=== PATIENT | male | born 1950 | race Hispanic/Latino ===

== ENCOUNTER → 2017-05-14 | Emergency (ER) | payer MEDICARE, OTHER ==
[~2017-05-14] VITALS: Ht 172.7 cm; Wt 81.7 kg
[~2017-05-14] MED LIST: ACETAMINOPHEN325 M1 PO; ARTIFICIAL TEA3.5 G1 OP; ASPIRIN EC325 MG PO; ASPIRIN EC81 MG PO; ATENOLOL100 MG PO; CARVEDILOL25 MG PO; CHOLEST OFF450 MG PO; CIPRO500 MG PO; COREG12.5 MG PO; FENOFIBRATE54 MG PO; FISH OIL 1,0001 EAC2 PO; FOLIC ACID0.4 MG PO; GARLIC500 M1 PO; GLIPIZIDE ER10 MG PO; GLIPIZIDE XL2.5 MG PO; GLUCOSAMINE 1,1 EACH PO; KEFLEX500 MG PO; LISINOPRIL-HCT1 EAC2; MELOXICAM15 MG PO; METFORMIN HCL500 MG; METFORMIN HCL850 MG PO; MULTIVITAMINS1 EAC8 PO; NIFEDICAL XL60 MG PO; NORCO 5-325 TA1 EACH PO; ONDANSETRON ODT4 MG PO; POTASSIUM CHLO10 MEQ PO; POTASSIUM CHLO20 ME1 PO; PROCARDIA XL30 MG PO; PROSTATE THERA1 EACH PO; SIMVASTATIN20 MG; SIMVASTATIN40 MG PO; TRICOR48 MG PO; VITAMIN B-12100 MCG PO; VITAMIN B-6100 MG PO; VITAMIN D400 UNI1 PO; ZESTORETIC 20-1 EACH PO; ZOLPIDEM TARTRA10 MG PO
--- NOTE | 2017-05-14 16:22 | EKG ---
[facility] [address] [facility] [place] [address] Signed Normal sinus rhythm Nonspecific T wave abnormality Abnormal ECG No previous ECGs available Confirmed by ZAIN REYNA MD ([id number]) on 05/14/2017 4:21:54 PM Electronically Signed By: ZAIN REYNA MD 05/14/17 1622 PATIENT NAME: RUSS ARREOLA Electrocardiogram DATE OF : 48 PHYSICIAN: ZAIN REYNA MD REPORT #: [id number] REPORT IS CONFIDENTIAL AND NOT TO BE RELEASED WITHOUT AUTHORIZATION
== END ==
LOC: ED 13:36
DX: R07.9 Chest pain, unspecified (principal); E11.65 Type 2 diabetes mellitus with hyperglycemia; I10 Essential (primary) hypertension; Z87.442 Personal history of urinary calculi; Z79.899 Other long term (current) drug therapy; Z79.84 Long term (current) use of oral hypoglycemic drugs
CPT/HCPCS: 36415; 71010; 80053; 82010; 82803; 84484; 85025; 93005; 93010; 96374; 96376; 99284; J7030

== ENCOUNTER 2017-06-11 16:44 | Emergency (ER) | payer MEDICARE, OTHER ==
[~2017-06-11] VITALS: Ht 172.7 cm; Wt 86.2 kg
[~2017-06-11 16:44] MED LIST changes: -CIPRO500 MG PO; -GLIPIZIDE ER10 MG PO; -ZOLPIDEM TARTRA10 MG PO
[2017-06-11] MEDS ORDERED: ZOLPIDEM TARTRA10 MG PO (17:38)
[2017-06-11] MEDS ORDERED: GLIPIZIDE ER10 MG PO (17:38)
[2017-06-11] MEDS ORDERED: CIPRO500 MG PO (21:16)
--- NOTE | 2017-06-12 18:29 | EKG ---
[facility] [address] [facility] [place] [address] Signed Normal sinus rhythm Minimal voltage criteria for LVH, may be normal variant Nonspecific T wave abnormality Abnormal ECG When compared with ECG of 11-JUN-2017 17:53, (Unconfirmed) No significant change was found Confirmed by ZAIN REYNA MD ([id number]) on 06/12/2017 6:29:19 PM Electronically Signed By: ZAIN REYNA MD 06/12/17 1829 PATIENT NAME: RUSS ARREOLA Electrocardiogram DATE OF : 48 PHYSICIAN: ZAIN REYNA MD REPORT #: [id number] REPORT IS CONFIDENTIAL AND NOT TO BE RELEASED WITHOUT AUTHORIZATION
--- NOTE | 2017-06-12 18:29 | EKG ---
[facility] [address] [facility] [place] [address] Signed Normal sinus rhythm Left ventricular hypertrophy with repolarization abnormality Abnormal ECG When compared with ECG of 14-MAY-2017 13:41, ST now depressed in Inferior leads Nonspecific T wave abnormality now evident in Inferior leads Confirmed by ZAIN REYNA MD ([id number]) on 06/12/2017 6:29:01 PM Electronically Signed By: ZAIN REYNA MD 06/12/17 1829 PATIENT NAME: RUSS ARREOLA Electrocardiogram DATE OF : [birth year] PHYSICIAN: ZAIN REYNA MD REPORT #: [id number] REPORT IS CONFIDENTIAL AND NOT TO BE RELEASED WITHOUT AUTHORIZATION
== END 2017-06-11 21:17 | disposition home or self-care (01) ==
LOC: ED 16:44
DX: R41.82 Altered mental status, unspecified (principal); N41.9 Inflammatory disease of prostate, unspecified; I10 Essential (primary) hypertension; E11.9 Type 2 diabetes mellitus without complications; Z87.442 Personal history of urinary calculi; Z86.73 Personal history of transient ischemic attack (TIA), and cerebral infarction without residual deficits; Z87.891 Personal history of nicotine dependence; Z79.899 Other long term (current) drug therapy; Z79.84 Long term (current) use of oral hypoglycemic drugs
CPT/HCPCS: 71010; 80053; 81001; 84484; 85025; 87088; 93005; 93010; 99284; G0480; J7030

== ENCOUNTER 2017-08-14 11:22 | Emergency (ER) | payer MEDICARE, OTHER ==
[~2017-08-14] VITALS: Ht 172.7 cm; Wt 86.2 kg
[~2017-08-14 11:22] MED LIST changes: +CIPRO500 MG PO; +GLIPIZIDE ER10 MG PO; +ZOLPIDEM TARTRA10 MG PO
[2017-08-14] MEDS ORDERED: FLOMAX0.4 MG PO (14:08)
[2017-09-25] MEDS ORDERED: LASIX40 MG PO (08:58)
[2017-09-25] MEDS ORDERED: ISOSORBIDE MONO60 MG PO (08:59)
[2017-09-25] MEDS ORDERED: K-TAB ER20 MEQ PO (09:01)
[2017-09-25] MEDS ORDERED: ASPIR 8181 MG (09:01)
[2017-09-25] MEDS ORDERED: KETOROLAC TROME10 MG PO (10:04)
[2017-09-25] MEDS ORDERED: CATAPRES0.1 MG PO (10:04)
[2017-09-25] MEDS ORDERED: ZESTRIL2.5 MG PO (10:04)
[2017-11-11] MEDS ORDERED: VITAMIN D35000 UNIT (10:07)
[2017-11-11] MEDS ORDERED: VITAMIN D2000 UNI1 (10:14)
[2017-11-11] MEDS ORDERED: FENOFIBRATE54 MG (10:15)
[2017-11-11] MEDS ORDERED: FISH OIL 1,0001 EAC2 (10:15)
[2017-11-11] MEDS ORDERED: HYDROCHLOROTH12.5 MG (10:16)
[2017-11-11] MEDS ORDERED: NITROFURANTOIN100 MG (10:17)
[2017-11-11] MEDS ORDERED: NITROSTAT0.4 MG (10:18)
[2017-11-11] MEDS ORDERED: SIMVASTATIN20 MG (10:19)
== END 2017-08-14 15:01 | disposition home or self-care (01) ==
LOC: ED 11:22
DX: R35.0 Frequency of micturition (principal); R10.30 Lower abdominal pain, unspecified; I10 Essential (primary) hypertension; E11.9 Type 2 diabetes mellitus without complications; Z87.442 Personal history of urinary calculi; Z86.73 Personal history of transient ischemic attack (TIA), and cerebral infarction without residual deficits; Z79.899 Other long term (current) drug therapy; Z79.84 Long term (current) use of oral hypoglycemic drugs
CPT/HCPCS: 74176; 80053; 81001; 85025; 96374; 99284; J1885

== ENCOUNTER 2018-06-24 13:09 | Observation (INO) | payer MEDICARE, OTHER ==
[~2018-06-24] VITALS: Ht 172.7 cm; Wt 83.7 kg
[~2018-06-24 13:09] MED LIST changes: +ASPIR 8181 MG PO; +CATAPRES0.1 MG PO; +FLOMAX0.4 MG PO; +HYDROCHLOROTH12.5 MG PO; +ISOSORBIDE MONO60 MG PO; +K-TAB ER20 MEQ PO; +KETOROLAC TROME10 MG PO; +LASIX40 MG PO; +NITROFURANTOIN100 MG; +NITROSTAT0.4 MG SL; +VITAMIN D32000 UNI1 PO; +VITAMIN D35000 UNIT; +ZESTRIL2.5 MG PO; +ZOFRAN ODT4 MG PO
[2018-06-24] MEDS ORDERED: ATORVASTATIN CA40 MG PO (13:34)
[2018-06-24] MEDS ORDERED: AMLODIPINE BESY10 MG PO (13:34)
[2018-06-24] MEDS ORDERED: OLMESARTAN MEDO40 MG PO (13:37)
--- NOTE | 2018-06-24 18:46 | NUR ---
68 YEAR OLD MALE PATIENT ADMITTED TO CCU UNDER DR. REYNA FROM ED VIA STRETCHER WITH DX HTN EMERGENCY. PATIENT STATES HE VOMITED 3 TIMES YESTERDAY. HX OF CKD. CREAT-4.33. UPON ADMIT TO CCU PATIENT IS ALERT, COOPERATIVE, ORIENTED.
--- NOTE | 2018-06-24 19:15 | NUR ---
NAUSEATED, PAIN IN LOWER ABD. REPORT TO NEXT SHIFT.
--- NOTE | 2018-06-24 19:35 | NUR ---
RECEIVED REPORT FROM JASON TODD. PATIENT IS SITTING IN BED WATCHING TV AND TALKING WITH FAMILY. BREATHING IS EVEN AND UNLABORED, DENIES NEEDS AT THIS TIME. IVF INFUSING PER ORDER.
--- NOTE | 2018-06-24 20:04 | NUR ---
PATIENT IS RESTFUL IN BED, BREATHING IS UNLABORED. DUE TO CONTINUED ELEVATED BP WITH SYSTOLIC >190, SCHEDULED CARVEDILOL AND AMLODIPINE GIVEN. ASSESSMENT DONE, PATIENT IS ALERT AND ORIENTED X4, BREATHING IS EVEN AND UNLABORED. PERIPHERAL PULSES WELL FELT IN ALL EXTREMITIES, HEART RATE BETWEEN 70 AND 80. ABD IS DISTENDED, PATIENT STATES THIS IS NORMAL FOR HIM, REBOUND TENDERNESS NOTED, BOWEL TONES ACTIVE, VOIDING STOOL AND URINE WITHOUT DIFFICULTY. IVF INFUSING PER ORDER, PATIENT DENIES NEEDS AT THIS TIME. CALL LIGHT WITHIN REACH, FAMILY AT BEDSIDE.
--- NOTE | 2018-06-24 20:32 | NUR ---
PATIENT REPORTS 3/10 PAIN IN ABD AND PAIN IN LEFT SHOULDER, WHICH HE STATES IS CHRONIC FOR HIM, DENIES CHEST PAIN. ALSO REPORTS NAUSEA. 2 MG IV PRN MORPHINE GIVEN AND 4 MG IV PRN ZOFRAN GIVEN. PATIETN DENIES FURTHER NEEDS.
--- NOTE | 2018-06-24 21:00 | NUR ---
NOTIFIED DR. REYNA THAT PATIENT HAS CONTINUED ELEVATED BP WITH SYSTOLIC PRESSURE >190 DESPITE PO AMLODIPINE AND CARVEDILOL GIVEN WELL PRN IV MORPHINE. RECEIVED ORDER FOR NICARDIPINE GTT TO BE INITIATED. ALSO NOTIFIED DR. REYNA THAT PATIENT'S BLOOD GLUCOSE WAS 56, ASYMPTOMATIC, AFTER GLASS OF ORANGE JUICE, BLOOD GLUCOSE 53. RECEIVED ORDER FOR 25 ML OF DEXTROSE 50% GIVEN IV AND IVF CHANGED TO D5NS AT 125 ML/HR.
--- NOTE | 2018-06-24 21:20 | NUR ---
PATIENT GIVEN 25 ML DEXTROSE 50% PER ORDER. PATIENT REMAINS ASYMPTOMATIC. ASSISTED TO BATHROOM SBA, GAIT STEADY. PATIENT ABLE TO VOID URINE, PASSING FLATUS. NOW IN BED AGAIN, BREATHING UNLABORED. PATIENT DENIES PAIN AT THIS TIME, STATES NAUSEA IS MINIMAL. DENIES FURTHER NEEDS. CALL LIGHT WITHIN REACH, FAMILY AT BEDSIDE.
--- NOTE | 2018-06-24 22:44 | NUR ---
PATIENT HAD EMESIS X1, 12.5 MG IV PRN PHENERGAN GIVEN. PATIENT DENIES PAIN AT THIS TIME. NO FURTHER NEEDS. CALL LIGHT WITHIN REACH, FAMILY AT BEDSIDE.
--- NOTE | 2018-06-24 22:46 | NUR ---
NICARDIPINE GTT TITRATED TO 7.5 MG/HR DUE TO BP OF 185/92 (111). PRN PHENERGAN GIVEN FOR CONTINUED NAUSEA DESPITE ZOFRAN ADMINISTRATION. PATIENT DENIES PAIN. DENIES FURTHER NEEDS AT THIS TIME. CALL LIGHT WITHIN REACH.
--- NOTE | 2018-06-24 22:53 | NUR ---
BLOOD GLUCOSE RECHECKED, NOW 160. PATIENT DENIES NEEDS AT THIS TIME. CALL LIGHT WITHIN REACH.
--- NOTE | 2018-06-24 23:52 | NUR ---
NICARDIPINE GTT TITRATED TO 5 MG/HR DUE TO BP OF 142/64 (81). PATIENT IS RESTFUL WITH EYES CLOSED, BREATHING IS EVEN AND UNLABORED. CALL LIGHT WITHIN REACH.
--- NOTE | 2018-06-25 01:25 | NUR ---
PATIENT IS RESTFUL WITH EYES CLOSED, BREATHING IS EVEN AND UNLABORED. O2 SATURATION IS 97% ON 2L O2 VIA NC, TITRATED TO 1L. FLACC SCORE OF 0. NICARDIPINE GTT TURNED OFF WITH SYSTOLIC PRESSURE RANGING BETWEEN 120 AND 160 WITH A MAP >90.
--- NOTE | 2018-06-25 02:51 | NUR ---
PATIENT IS RESTFUL WITH EYES CLOSED, BREATHING IS UNLABORED, O2 SATURATION IS 95% ON 2L O2 VIA NC, CONTINUES TO DESAT WHILE ASLEEP, NONSUSTAINED. DENIES FEELING NAUSEOUS, DENIES PAIN. NO NEEDS AT THIS TIME. CALL LIGHT WITHIN REACH.
[2018-06-25] MEDS ORDERED: BENICAR40 MG PO (03:01)
[2018-06-25] MEDS ORDERED: ALDACTONE25 MG PO (03:03)
[2018-06-25] MEDS ORDERED: ULTRAM50 MG PO (03:05)
--- NOTE | 2018-06-25 03:45 | NUR ---
PATIENT REMAINS RESTFUL WITH EYES CLOSED, BREATHING IS UNLABORED. FLACC SCORE OF 0. CALL LIGHT WITHIN REACH.
--- NOTE | 2018-06-25 05:39 | NUR ---
PATIENT IS RESTING IN BED WITH EYES CLOSED. DENIES NEEDS AT THIS TIME, DENIES PAIN, NO NAUSEA. ASSESSMENT DONE, NO ACUTE CHANGES FROM BEGINNING OF SHIFT ASSESSMENT. CALL LIGHT WITHIN REACH.
--- NOTE | 2018-06-25 06:43 | NUR ---
PATIENT'S BLOOD PRESSURE HAS BEEN WELL CONTROLLED THIS SHIFT AFTER PO SCHEDULED MEDICATIONS AND ABOUT TWO HOURS ON NICARDIPINE GTT. PATIENT HAS BEEN OFF GTT FOR SEVERAL HOURS AND SYSTOLIC BP REMAINS >180 AND MAPS BETWEEN 90 AND 110. PATIENT HAS DENIED PAIN THROUGHOUT SHIFT, REQUIRED X1 DOSE OF PRN MORPHINE. ABD REMAINS DISTENDED (PATIENT STATES THIS IS NORMAL FOR HIM) BOWEL TONES AE ACTIVE, PATIENT PASSING GAS. HAS REQUIRRED BETWEEN 1 AND 2 L OF O2 DUE TO DESATURATION WHILE ASLEEP, LUNGS SOUNDS REMAIN CLEAR THROUGHOUT. VOIDING QS WITH URINAL AND AMBULATION WITH SBA TO BATHROOM. BLOOD GLUCOSE REMAINS >100 AFTER DEXTROSE 50% ADMINISTRATION AND ADDITION OF DEXTROSE 5% TO IVF. PATIENT HAS BEEN RESTING THROUGHOUT NIGHT.
--- NOTE | 2018-06-25 09:52 | NUR ---
STAFF IN WITH PATIENT. WILL RETURN LATER.
--- NOTE | 2018-06-25 11:20 | NUR ---
ATTEMPTED ASSESS PATIENT FOR CASE MANAGEMENT, PT IS SLEEPING AND IS ON THE PHONE, WILL CHECK WITH PT LATER.
--- NOTE | 2018-06-25 12:15 | NUR ---
IV SITES INTACT, NO REDNESS OR SWELLING NOTED, FLUIDS AND FLUSHES INFUSE EASILY. PT C/O 11/06 RT LOW ABD PAIN, 2 MG IV MORPHINE GIVEN. PT DENIES NAUSEA, AND IS AGREABLE TO ANOTHER CLEAR LIQUID TRAY FOR LUNCH. PT 02 SATS MAINTAINED EVEN DURING SLEEP ON ROOM AIR. BP REMAINS WNL. PT DENEIS SOB.
--- NOTE | 2018-06-25 12:52 | NUR ---
PT. VERY TIRED AT VISIT AND FALLING ASLEEP. REQUESTS I TALK WITH SHARRI. PT HAS NOT BEEN FEELING WELL SINCE BEFORE ELISE DUE TO EXHAUSTION. 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 LIVES WITH , ADULT CHILDREN, AND GRANDCHILDREN. PT WILL FU WITH DR SAN WHEN DISCHARGED.
--- NOTE | 2018-06-25 13:08 | NUR ---
PATIENT TOLERATED 100% OF CLEAR LIQUID DIET LUNCH TRAY. DENIES ANY C/O. CALL LIGHT WITHIN REACH.
--- NOTE | 2018-06-25 13:17 | NUR ---
I ENTERED PT'S RM, HE WAS ASLEEP, HIS WAS LAYING ON COUCH. BP FINALLY DOWN-HAD VERY CONCERNED. FAMILY REQUESTED FR MORENO TO VISIT, I CALLED, LEFT A MESSAGE AND INFORMED FAMILY. PT WOKE BRIEFLY, WAVED AND SEEMED TO RECOGNIZE ME. THEN FELL BACK ASLEEP. EXTENDED A BLESSING, WILL FOLLOW NEEDED
--- NOTE | 2018-06-25 13:45 | NUR ---
PT ABLE TO FINISH ALL OF HIS CLEAR LIQUID TRAY FOR LUNCH. PT DENIES NAUSEA, PAIN, AND SOB AT THIS TIME. PT STATES "I SHOULD GO HOME NOW".
--- NOTE | 2018-06-25 15:24 | NUR ---
PT REPORTS "I'M HURGRY". HE DENIES PAIN, NAUSEA, AND SOB. A FULL SOFT TRAY OF FOOD WAS ORDERED FOR HIM WITH DIETARY.
--- NOTE | 2018-06-25 15:51 | EKG ---
[facility] [address] [facility] [place] [address] Signed Normal sinus rhythm Minimal voltage criteria for LVH, may be normal variant Borderline ECG When compared with ECG of 15-MAY-2018 13:33, Nonspecific T wave abnormality no longer evident in Lateral leads Confirmed by VIRGINIA NATARAJAN MD ([id number]) on 06/25/2018 3:51:34 PM Electronically Signed By: VIRGINIA NATARAJAN MD 06/25/18 1551 PATIENT NAME: RUSS ARREOLA Electrocardiogram DATE OF : 48 PHYSICIAN: VIRGINIA NATARAJAN MD REPORT #: [id number] REPORT IS CONFIDENTIAL AND NOT TO BE RELEASED WITHOUT AUTHORIZATION
[2018-06-25] MEDS ORDERED: ISOSORBIDE MON120 MG PO (17:14)
[2018-06-25] MEDS ORDERED: HYDROCHLOROTHIA25 MG PO (17:15)
[2018-06-25] MEDS ORDERED: POTASSIUM CHLO10 ME2 PO (17:18)
--- NOTE | 2018-06-25 17:23 | NUR ---
RECIEVED REPORT FROM CHIP IN CCU VIA TELEPHONE. ALL QUESTIONS ANSWERED. WAITING FOR PATIENT'S ARRIVE TO THE UNIT AT THIS TIME.
--- NOTE | 2018-06-25 17:44 | NUR ---
FULL REPORT GIVEN TO ALE TODD, PT TRANSFERED TO MED/SURG ROOM 122. ALL PERSONAL BELONGINGS WENT WITH PT.
--- NOTE | 2018-06-25 18:11 | NUR ---
PATIENT ARRIVED TO FLOOR VIA CHAIR FROM CCU ACCOMPANIED BY CONSULTING PRACTICE MANAGER AND FAMILY MEMBERS AT 1745. VITALS ASSESSED. IV'S ASSESSED, NO SIGN OF SWELLING OR REDNESS PRESENT, PATIENT DENIES PAIN. PATIENT DENIES HAVING NAUSEA, SOB, DIFFICULTY BREATHING, OR CHEST PAIN. PATIENT STATES "I FEEL MUCH BETTER" THEY ARE TALKING WITH FAMILY MEMBERS. SALINE LOCKED. POSSESSIONS AT BEDSIDE. URINAL WITHIN REACH. ASSESSMENT COMPLETE. FAMILY MEMBERS AT BEDSIDE. CALL LIGHT WITHIN REACH. NO MORE NEEDS AT THIS TIME.
--- NOTE | 2018-06-25 19:21 | NUR ---
IN ROOM FOR REPORT, PT HAS FAMILY WITH HIM IN THE ROOM AND PHARMACIST. HE DENIES NEEDS AT THIS TIME. CALL LIGHT IS CLOSE.
[2018-06-25] MEDS ORDERED: TYLENOL EXTRA500 MG PO (19:29)
--- NOTE | 2018-06-25 19:37 | NUR ---
MED REC COMPLETE
--- NOTE | 2018-06-25 19:44 | NUR ---
BROUGHT PT CHICKEN BROTH AND ICECREAM HE DENIES FURTHER NEEDS. CALL LIGHT IS CLOSE.
--- NOTE | 2018-06-25 21:29 | NUR ---
IN ROOM TO ADMINISTER MEDICATIONS AND COMPLETE ASSESSMENT. PT DENIES HEADACHE AND PAIN. HE STATES HE FEELS "NORMAL". HIS IS IN THE ROOM WITH HIM. HE DENIES NEEDS AT THIS TIME. VS & I&O'S ARE COMPLETE.
--- NOTE | 2018-06-25 23:34 | NUR ---
PT IS RESTING WITH EYES CLOSED, RESPIRATIONS ARE EVEN AND NONLABORED. CALL LIGHT IS WITHIN REACH.
--- NOTE | 2018-06-26 01:23 | NUR ---
PT IS RESTING WITH EYES CLOSED, RESPIRATIONS ARE EVEN AND NONLABORED. CALL LIGHT IS WITHIN REACH.
--- NOTE | 2018-06-26 02:30 | NUR ---
PT IS RESTING WITH EYES CLOSED, RESPIRATIONS ARE EVEN AND NONLABORED. CALL LIGHT IS WITHIN REACH.
--- NOTE | 2018-06-26 03:57 | NUR ---
PT IS RESTING WITH EYES CLOSED, RESPIRATIONS ARE EVEN AND NONLABORED. CALL LIGHT IS WITHIN REACH.
--- NOTE | 2018-06-26 05:27 | NUR ---
PT IS RESTING WITH EYES CLOSED, RESPIRATIONS ARE EVEN AND NONLABORED. CALL LIGHT IS WITHIN REACH.
--- NOTE | 2018-06-26 05:41 | NUR ---
PT SLEPT MOST OF THE NIGHT. HE DENIED PAIN, N/V. HE TOLERATED A FULL LIQUID DIET YESTERDAY AND WILL START ADA DIET FOR BREAKFAST. BS AT HS WAS 114 AND DID NOT REQUIRE S/S INSULIN. 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 BP'S HAVE BEEN CONTROLLED WITH SCHEDULED MEDICATIONS. HE DENIES PAIN.
--- NOTE | 2018-06-26 07:35 | NUR ---
LEFT MSG FOR DR NATARAJAN ABOUT PT'S MORNING BP.
[2018-06-26] MEDS ORDERED: HYDRALAZINE HCL25 MG PO (11:44)
[2018-06-26] MEDS ORDERED: PRAZOSIN HCL1 MG PO (11:45)
[2018-06-26] MEDS ORDERED: NORVASC10 MG PO (11:45)
[2018-06-26] MEDS ORDERED: DEMADEX20 MG PO (11:47)
--- NOTE | 2018-06-26 12:22 | NUR ---
PT ASLEEP, FAMILY IN RM. VISITED WITH DAUGHTER-SHE IS CONCERNED THAT PT STILL IS NOT EATING SOLID FOOD, FEELING RELIEVED THAT BP IS LOWER. ENCOURAGED FAMILY AND WILL CONTINUE TO FOLLOW
--- NOTE | 2018-06-26 12:56 | NUR ---
PATIENT REFUSED SHOWER BECAUSE HE SAID HE IS GOING HOME.
--- NOTE | 2018-06-26 13:46 | NUR ---
Spoke with pt and , Clara. They plan to dc home today. Dr Maldonado spoke with Dr Curiel and their office will call pt with follow up appt after next Wed. Pt. is awake today and feeling better. is comfortable taking patient home today. Denies questions or concerns.
== END 2018-06-26 15:10 | disposition home or self-care (01) ==
LOC: ED 13:09 → CCU 13:10 → MS 06-25 17:45
PROVIDERS: ADMIT Internal Medicine
DX: I16.0 Hypertensive urgency (principal); I12.9 Hypertensive chronic kidney disease with stage 1 through stage 4 chronic kidney disease, or unspecified chronic kidney disease; N18.4 Chronic kidney disease, stage 4 (severe); N17.9 Acute kidney failure, unspecified; E11.22 Type 2 diabetes mellitus with diabetic chronic kidney disease; E86.0 Dehydration; G47.33 Obstructive sleep apnea (adult) (pediatric); E66.9 Obesity, unspecified; N40.0 Benign prostatic hyperplasia without lower urinary tract symptoms; E78.5 Hyperlipidemia, unspecified; R10.32 Left lower quadrant pain; Z86.73 Personal history of transient ischemic attack (TIA), and cerebral infarction without residual deficits; Z79.84 Long term (current) use of oral hypoglycemic drugs; Z79.82 Long term (current) use of aspirin; Z79.899 Other long term (current) drug therapy; Z68.28 Body mass index [BMI] 28.0-28.9, adult
CPT/HCPCS: 36415; 74176; 76705; 80048; 80053; 81001; 84484; 85025; 93005; 93010; 96361; 96374; 96375; 96376; 99285-25; C9113; G0378; J0360; J1815; J2270; J2405; J2550; J7030; J7042; J7060

== ENCOUNTER 2018-08-06 16:02 | Emergency (ER) | payer MEDICARE, OTHER ==
[~2018-08-06] VITALS: Ht 172.7 cm; Wt 83.7 kg
[~2018-08-06 16:02] MED LIST changes: +ALDACTONE25 MG PO; +AMLODIPINE BESY10 MG PO; +ATORVASTATIN CA40 MG PO; +BENICAR40 MG PO; +DEMADEX20 MG PO; +HYDRALAZINE HCL25 MG PO; +HYDROCHLOROTHIA25 MG PO; +ISOSORBIDE MON120 MG PO; +NORVASC10 MG PO; +OLMESARTAN MEDO40 MG PO; +POTASSIUM CHLO10 ME2 PO; +PRAZOSIN HCL1 MG PO; +TYLENOL EXTRA500 MG PO; +ULTRAM50 MG PO
[2018-08-06] MEDS ORDERED: NORCO 5-325 TA1 EACH PO (18:17)
[2018-08-06] MEDS ORDERED: KETOROLAC TROME10 MG PO (18:17)
[2018-08-06] MEDS ORDERED: BACLOFEN10 MG PO (18:17)
--- NOTE | 2018-08-06 23:38 | EKG ---
[facility] [address] [facility] [place] [address] Signed Normal sinus rhythm Normal ECG When compared with ECG of 24-JUN-2018 13:55, T wave inversion more evident in Inferior leads Confirmed by ZAIN REYNA MD ([id number]) on 08/06/2018 11:38:22 PM Electronically Signed By: ZAIN REYNA MD 08/06/18 2338 PATIENT NAME: RUSS ARREOLA PLATT Electrocardiogram DATE OF : 48 PHYSICIAN: ZAIN REYNA MD REPORT #: [id number] REPORT IS CONFIDENTIAL AND NOT TO BE RELEASED WITHOUT AUTHORIZATION
== END 2018-08-06 18:56 | disposition home or self-care (01) ==
LOC: ED 16:02
DX: S22.41XA Multiple fractures of ribs, right side, initial encounter for closed fracture (principal); S00.03XA Contusion of scalp, initial encounter; E11.9 Type 2 diabetes mellitus without complications; I10 Essential (primary) hypertension; Z86.73 Personal history of transient ischemic attack (TIA), and cerebral infarction without residual deficits; Z87.442 Personal history of urinary calculi; Z79.899 Other long term (current) drug therapy; Z79.82 Long term (current) use of aspirin; Z79.84 Long term (current) use of oral hypoglycemic drugs; W01.0XXA Fall on same level from slipping, tripping and stumbling without subsequent striking against object, initial encounter
CPT/HCPCS: 36415; 70450; 71101; 73030; 80053; 84484; 85025; 93005; 93010; 99284-25

== ENCOUNTER 2018-08-14 14:55 | Emergency (ER) | payer MEDICARE, OTHER ==
[~2018-08-14] VITALS: Ht 172.7 cm; Wt 83.7 kg
[~2018-08-14 14:55] MED LIST changes: +BACLOFEN10 MG PO
--- OUTSIDE RECORDS SUMMARY | 2018-08-14 14:58 | XMS ---
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 EJaelyn VISIT COUNT (12 MO.) 6 [facility] TOTAL 6 NOTE: Visits indicate total known visits. ED/UCC VISIT TRACKING (12 MO.) 08/14/2018 14:56 [facility] [place] TYPE: Emergency COMPLAINT: - BLOOD IN URINE 08/06/2018 16:02 [facility] [place] TYPE: Emergency COMPLAINT: - FALL DIAGNOSES: - Essential (primary) hypertension - Personal history of urinary calculi - Type 2 diabetes mellitus without complications - long term care social worker (current) use of oral hypoglycemic drugs - Pain in right shoulder - Other chcf (current) drug therapy - Multiple fractures of ribs, right side, initial encounter for closed fracture - Contusion of scalp, initial encounter - Personal history of transient ischemic attack (TIA), and cerebral infarction without residual deficits - Fall on same level from slipping, tripping and stumbling without subsequent striking against object, initial encounter - skilled nursing (current) use of aspirin 06/24/2018 13:09 [facility] [place] TYPE: Emergency COMPLAINT: - VOMITING 05/15/2018 13:24 [facility] [place] TYPE: Emergency COMPLAINT: - HIGH BP DIAGNOSES: - skilled nursing (current) use of aspirin - Other chcf (current) drug therapy - Essential (primary) hypertension - Type 2 diabetes mellitus without complications - Other chest pain - skilled nursing (current) use of oral hypoglycemic drugs 09/25/2017 08:44 [facility] [place] TYPE: Emergency COMPLAINT: - HIGH BP DIAGNOSES: - Unspecified abdominal pain - Personal history of urinary calculi - Other chronic pain - Type 2 diabetes mellitus without complications - Personal history of transient ischemic attack (TIA), and cerebral infarction without residual deficits - Other chcf (current) drug therapy - Essential (primary) hypertension - 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 OF ORAL HYPOGLYCEMIC DRUGS - HYPERTENSIVE CRISIS, UNSPECIFIED - Hypertensive crisis, unspecified - skilled nursing (current) use of aspirin - skilled nursing (current) use of oral hypoglycemic drugs 08/14/2017 11:22 [facility] [place] TYPE: Emergency COMPLAINT: - ABD PAIN/BACK PAIN DIAGNOSES: - Essential (primary) hypertension - Type 2 diabetes mellitus without complications - Personal history of urinary calculi - Unspecified abdominal pain - long term care social worker (current) use of oral hypoglycemic drugs - Other long term care social worker (current) drug therapy - Frequency of micturition - Lower abdominal pain, unspecified - SKILLED NURSING (CURRENT) USE OF ORAL HYPOGLYCEMIC DRUGS - Personal history of transient ischemic attack (TIA), and cerebral infarction without residual deficits INPATIENT VISIT TRACKING (12 MO.) 06/24/2018 13:[address] [facility] [place] TYPE: Medical Surgical COMPLAINT: - HYPERTENSIVE EMERGENCY DIAGNOSES: - Acute kidney failure, unspecified - skilled nursing (current) use of oral hypoglycemic drugs - Left lower quadrant pain - Other chcf (current) drug therapy - Vomiting, unspecified - Type 2 diabetes mellitus with diabetic chronic kidney disease - Benign prostatic hyperplasia without lower urinary tract symptoms - Hypertensive urgency - Body mass index (BMI) 28.0-28.9, adult - Hypertensive chronic kidney disease with stage 1 through stage 4 chronic kidney disease, or unspecified chronic kidney disease - Obstructive sleep apnea (adult) (pediatric) - Personal history of transient ischemic attack (TIA), and cerebral infarction without residual deficits - Dehydration - long term care social worker (current) use of aspirin - Obesity, unspecified - Hyperlipidemia, unspecified - Chronic kidney disease, stage 4 (severe) [email or web address]
== END 2018-08-14 22:35 | disposition short-term general hospital (02) ==
LOC: ED 14:55
PROC: 4A0D7LZ Measurement of Urinary Volume, Via Natural or Artificial Opening (ICD-10-PCS; principal; 2018-08-14)
PROC: 3C1ZX8Z Irrigation of Indwelling Device using Irrigating Substance, External Approach (ICD-10-PCS; 2018-08-14)
DX: N13.9 Obstructive and reflux uropathy, unspecified (principal); E11.22 Type 2 diabetes mellitus with diabetic chronic kidney disease; I12.9 Hypertensive chronic kidney disease with stage 1 through stage 4 chronic kidney disease, or unspecified chronic kidney disease; N18.9 Chronic kidney disease, unspecified; D63.1 Anemia in chronic kidney disease; Z87.442 Personal history of urinary calculi; Z86.73 Personal history of transient ischemic attack (TIA), and cerebral infarction without residual deficits; Z87.891 Personal history of nicotine dependence; Z79.899 Other long term (current) drug therapy; Z79.82 Long term (current) use of aspirin
CPT/HCPCS: 51700; 51798; 74176; 80053; 81001; 85025; 99284-25; J1170; J2405

== ENCOUNTER 2018-10-28 11:03 | Emergency (ER) | payer MEDICARE, OTHER ==
[~2018-10-28] VITALS: Ht 172.7 cm; Wt 83.5 kg
--- OUTSIDE RECORDS SUMMARY | 2018-10-28 11:06 | XMS ---
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 Karen VISIT COUNT (12 MO.) 1 [facility] TOTAL 6 NOTE: Visits indicate total known visits. ED/UCC VISIT TRACKING (12 MO.) 10/28/2018 11:04 [facility] [place] TYPE: Emergency COMPLAINT: - RIGHT KNEE PAIN NON INJURY 08/14/2018 23:39 [facility] [place] TYPE: Emergency DIAGNOSES: - Hematuria - Hematoma - Urinary Catheter Problem 08/14/2018 14:56 [facility] [place] TYPE: Emergency COMPLAINT: - BLOOD IN URINE DIAGNOSES: - Personal history of transient ischemic attack (TIA), and cerebral infarction without residual deficits - Obstructive and reflux uropathy, unspecified - Other chcf (current) drug therapy - middle or intermediate school principal (current) use of aspirin - Chronic kidney disease, unspecified - Personal history of nicotine dependence - Personal history of urinary calculi - Hypertensive chronic kidney disease with stage 1 through stage 4 chronic kidney disease, or unspecified chronic kidney disease - Type 2 diabetes mellitus with diabetic chronic kidney disease - Hematuria, unspecified - Anemia in chronic kidney disease 08/06/2018 16:02 [facility] [place] TYPE: Emergency COMPLAINT: - FALL DIAGNOSES: - Essential (primary) hypertension - Personal history of urinary calculi - Type 2 diabetes mellitus without complications - middle or intermediate school principal (current) use of oral hypoglycemic drugs - Pain in right shoulder - Other terminal system operator (current) drug therapy - Multiple fractures of ribs, right side, initial encounter for closed fracture - Contusion of scalp, initial encounter - Personal history of transient ischemic attack (TIA), and cerebral infarction without residual deficits - Fall on same level from slipping, tripping and stumbling without subsequent striking against object, initial encounter - middle or intermediate school principal (current) use of aspirin 06/24/2018 13:09 [facility] [place] TYPE: Emergency COMPLAINT: - VOMITING 05/15/2018 13:24 [facility] [place] TYPE: Emergency COMPLAINT: - HIGH BP DIAGNOSES: - intermediate (current) use of aspirin - Other chcf (current) drug therapy - Essential (primary) hypertension - Type 2 diabetes mellitus without complications - Other chest pain - middle or intermediate school principal (current) use of oral hypoglycemic drugs INPATIENT VISIT TRACKING (12 MO.) 08/14/2018 23:39 [facility] [place] TYPE: Internal Medicine DIAGNOSES: - Gross hematuria 06/24/2018 13:10 [facility] [place] TYPE: Medical Surgical COMPLAINT: - HYPERTENSIVE EMERGENCY DIAGNOSES: - Acute kidney failure, unspecified - middle or intermediate school principal (current) use of oral hypoglycemic drugs - Left lower quadrant pain - Other terminal system operator (current) drug therapy - Vomiting, unspecified - [...] infarction without residual deficits - Dehydration - intermediate (current) use of aspirin - Obesity, unspecified - Hyperlipidemia, unspecified - Chronic kidney disease, stage 4 (severe) [email or web address]
== END 2018-10-28 12:55 | disposition home or self-care (01) ==
LOC: ED 11:03
DX: M17.11 Unilateral primary osteoarthritis, right knee (principal); M25.551 Pain in right hip; E11.9 Type 2 diabetes mellitus without complications; I10 Essential (primary) hypertension; Z86.73 Personal history of transient ischemic attack (TIA), and cerebral infarction without residual deficits; Z79.899 Other long term (current) drug therapy; Z79.82 Long term (current) use of aspirin
CPT/HCPCS: 20610; 99283-25; J3301

== ENCOUNTER 2019-05-06 13:43 | Emergency (ER) | payer MEDICARE, OTHER ==
[~2019-05-06] VITALS: Ht 172.7 cm; Wt 83.5 kg
[2019-05-06] MEDS ORDERED: BENICAR40 MG PO (14:08)
[2019-05-06] MEDS ORDERED: K-TAB ER20 MEQ PO (14:09)
[2019-05-06] MEDS ORDERED: HYDROCHLOROTHIA25 MG PO (14:09)
[2019-05-06] MEDS ORDERED: INDAPAMIDE2.5 MG PO (14:10)
[2019-05-06] MEDS ORDERED: GLIPIZIDE ER10 MG PO (14:10)
[2019-05-06] MEDS ORDERED: CALCITRIOL0.5 MCG PO (14:11)
--- NOTE | 2019-05-07 06:59 | EKG ---
[facility] [address] [facility] [place] [address] Signed Normal sinus rhythm Moderate voltage criteria for LVH, may be normal variant Nonspecific T wave abnormality Abnormal ECG When compared with ECG of 06-AUG-2018 16:58, T wave inversion no longer evident in Inferior leads Confirmed by VIRGINIA NATARAJAN MD ([id number]) on 05/07/2019 6:59:46 AM Electronically Signed By: VIRGINIA NATARAJAN MD 05/07/19 0659 PATIENT NAME: RUSS ARREOLA Electrocardiogram DATE OF : 48 PHYSICIAN: VIRGINIA NATARAJAN MD REPORT #: [id number] REPORT IS CONFIDENTIAL AND NOT TO BE RELEASED WITHOUT AUTHORIZATION
== END 2019-05-06 15:05 | disposition short-term general hospital (02) ==
LOC: ED 13:43
DX: I24.9 Acute ischemic heart disease, unspecified (principal); I10 Essential (primary) hypertension; E11.9 Type 2 diabetes mellitus without complications; Z86.73 Personal history of transient ischemic attack (TIA), and cerebral infarction without residual deficits; Z87.891 Personal history of nicotine dependence; Z79.899 Other long term (current) drug therapy; Z79.82 Long term (current) use of aspirin
CPT/HCPCS: 71045; 80053; 83735; 84484; 85025; 93005; 93010; 96374; 99285-25; J1815

== ENCOUNTER 2019-07-04 11:07 | Emergency (ER) | payer MEDICARE, OTHER ==
[~2019-07-04] VITALS: Ht 170.2 cm; Wt 83.5 kg
[~2019-07-04 11:07] MED LIST changes: +CALCITRIOL0.5 MCG PO; +INDAPAMIDE2.5 MG PO
--- NOTE | 2019-07-05 13:16 | EKG ---
[facility] [address] [facility] [place] [address] Signed Normal sinus rhythm Nonspecific T wave abnormality Abnormal ECG When compared with ECG of 06-MAY-2019 13:45, No significant change was found Confirmed by LEON FUNES DO ([id number]) on 07/05/2019 1:16:41 PM Electronically Signed By: LEON FUNES DO 07/05/19 1316 PATIENT NAME: MAXWELLRUSS Electrocardiogram DATE OF : 48 PHYSICIAN: LEON FUNES DO REPORT #: [id number] REPORT IS CONFIDENTIAL AND NOT TO BE RELEASED WITHOUT AUTHORIZATION
== END 2019-07-04 15:53 | disposition home or self-care (01) ==
LOC: ED 11:07
DX: R56.9 Unspecified convulsions (principal); D64.9 Anemia, unspecified; E11.9 Type 2 diabetes mellitus without complications; I10 Essential (primary) hypertension; Z86.73 Personal history of transient ischemic attack (TIA), and cerebral infarction without residual deficits; Z87.891 Personal history of nicotine dependence; Z79.899 Other long term (current) drug therapy; Z79.82 Long term (current) use of aspirin
CPT/HCPCS: 70450; 80053; 81001; 83735; 84146; 84484; 85025; 85045; 93005; 93010; 99284-25; G0480

== ENCOUNTER 2019-08-31 19:46 | Emergency (ER) | payer MEDICARE, OTHER ==
[~2019-08-31] VITALS: Ht 170.2 cm; Wt 83.5 kg
[2019-08-31] MEDS ORDERED: NIFEDIPINE ER30 MG PO (21:05)
--- NOTE | 2019-09-01 13:47 | EKG ---
[facility] [address] [facility] [place] [address] Signed Normal sinus rhythm Nonspecific T wave abnormality Abnormal ECG When compared with ECG of 04-JUL-2019 11:21, Nonspecific T wave abnormality now evident in Inferior leads Confirmed by LEON FUNES DO ([id number]) on 09/01/2019 1:47:21 PM Electronically Signed By: LEON FUNES DO 09/01/19 1347 PATIENT NAME: ARREOLARUSS Olivia Electrocardiogram DATE OF : 48 PHYSICIAN: LEON FUNES DO REPORT #: [id number] REPORT IS CONFIDENTIAL AND NOT TO BE RELEASED WITHOUT AUTHORIZATION
== END 2019-08-31 22:28 | disposition home or self-care (01) ==
LOC: ED 19:46
DX: R07.89 Other chest pain (principal); R10.32 Left lower quadrant pain; Z99.2 Dependence on renal dialysis; I10 Essential (primary) hypertension; E11.9 Type 2 diabetes mellitus without complications; Z86.73 Personal history of transient ischemic attack (TIA), and cerebral infarction without residual deficits; Z87.891 Personal history of nicotine dependence; Z79.899 Other long term (current) drug therapy; Z79.82 Long term (current) use of aspirin
CPT/HCPCS: 71046; 74176; 80053; 83690; 83735; 84484; 85025; 93005; 93010; 99285-25

== ENCOUNTER 2021-01-19 20:09 | Emergency (ER) | payer MEDICARE, OTHER ==
[~2021-01-19] VITALS: Ht 170.2 cm; Wt 83.5 kg
[~2021-01-19 20:09] MED LIST changes: +LISINOPRIL10 MG PO; +NIFEDIPINE ER30 MG PO
--- OUTSIDE RECORDS SUMMARY | 2021-01-19 20:12 | XMS ---
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 E.DMargot VISIT COUNT (12 MO.) 1 [facility] 1 [facility] NOTE: Visits indicate total known visits. ED/UCC VISIT TRACKING (12 MO.) 01/19/2021 20:10 [facility] Richard TYPE: Emergency COMPLAINT: - HIGH PULSE 01/03/2021 09:33 [facility] DIAGNOSES: - End stage renal disease - Pneumonia, unspecified organism - Shortness of Breath - Shortness of breath - Dependence on renal dialysis - Acute pulmonary edema 12[facility]01[facility]2020 14[facility] DIAGNOSES: - GI Bleeding - Gastrointestinal hemorrhage, unspecified - End stage renal disease - Other fatigue - Dependence on renal dialysis INPATIENT VISIT TRACKING (12 MO.) 01/03/2021 09:33 [facility] TYPE: Intensive Care DIAGNOSES: - Facial weakness following cerebral infarction - Dependence on renal dialysis - Acute systolic (congestive) heart failure - Unspecified atrial fibrillation - Atherosclerotic heart disease of [place] coronary artery without angina pectoris - Non-ST elevation (NSTEMI) myocardial infarction - Ischemic cardiomyopathy - Pneumonia, unspecified organism - End stage renal disease - USP (current) use of insulin - Type 2 diabetes mellitus with diabetic nephropathy - Essential (primary) hypertension - Acute pulmonary edema - Shortness of breath [facility]2020 23[facility] DIAGNOSES: - manager intermediate (current) use of insulin - End stage renal disease - Facial weakness following cerebral infarction - ST elevation (STEMI) myocardial infarction involving other coronary artery of anterior wall - Dependence on renal dialysis - Unspecified diastolic (congestive) heart failure - Type 2 diabetes mellitus with hyperglycemia - Ileus, unspecified - Essential (primary) hypertension - Generalized (acute) peritonitis - Type 2 diabetes mellitus with hyperosmolarity without nonketotic hyperglycemic-hyperosmolar coma ([facility]) - ST elevation (STEMI) myocardial infarction of unspecified site - Atherosclerotic heart disease of [place] coronary artery with unstable angina pectoris - Type 2 diabetes mellitus with diabetic nephropathy 12/01/2020 14:34 [facility] TYPE: Internal Medicine DIAGNOSES: - Disorder of mineral metabolism, unspecified - End stage renal disease - Unspecified diastolic (congestive) heart failure - Type 2 diabetes mellitus with diabetic nephropathy - Other fatigue - Anemia in chronic kidney disease - Essential (primary) hypertension - Chronic kidney disease, unspecified - Dependence on renal dialysis - Gastrointestinal hemorrhage, unspecified - Disorder of bone, unspecified - Hypomagnesemia - Hemorrhage of anus and rectum [email or web address]
[2021-01-19] MEDS ORDERED: AMIODARONE HCL200 MG PO (21:34)
[2021-01-19] MEDS ORDERED: CLOPIDOGREL75 MG PO (21:35)
[2021-01-19] MEDS ORDERED: MINIPRESS2 MG PO (21:40)
[2021-01-19] MEDS ORDERED: NOVOLOG FL100 UNIT/1 SUB-Q (21:40)
[2021-01-19] MEDS ORDERED: DOCUSATE SODIU100 MG PO (21:41)
[2021-01-19] MEDS ORDERED: FISH OIL 1,0001 EAC2 NG (21:42)
[2021-01-19] MEDS ORDERED: ACID CONTROLLER10 MG PO (21:42)
[2021-01-19] MEDS ORDERED: GENTAMICIN SULF15 G2 (21:43)
[2021-01-19] MEDS ORDERED: LANTUS100 UNITS/ SUB-Q (21:45)
[2021-01-19] MEDS ORDERED: PRILOSEC OTC20 MG PO (21:46)
[2021-01-19] MEDS ORDERED: VELPHORO500 MG PO (21:46)
[2021-01-19] MEDS ORDERED: TYLENOL EXTRA500 MG PO (21:47)
[2021-01-19] MEDS ORDERED: ULTRAM50 MG PO (21:47)
[2021-01-19] MEDS ORDERED: POLYETHYLENE GL17 GM PO (21:48)
[2021-01-19] MEDS ORDERED: VOLTAREN ARTHRI20 GM (21:48)
--- NOTE | 2021-01-20 19:03 | EKG ---
[facility] [address] [place] [address] Signed Atrial flutter with variable AV block ST elevation now present in V2 - V4, Consider Anterior wall injury/infarction Anterolateral infarct , age undetermined Abnormal ECG When compared with ECG of 01-OCT-2019 16:00, Atrial flutter has replaced Sinus rhythm Vent. rate has increased BY 64 BPM Anterior infarct is now present Anterolateral infarct is now present Non-specific change in ST segment in Lateral leads Confirmed by ZAIN REYNA MD ([id number]) on 01/20/2021 7:03:07 PM Electronically Signed By: ZAIN REYNA MD 01/20/21 190 PATIENT NAME: RUSS RAREOLA Electrocardiogram DATE OF : 48 PHYSICIAN: ZAIN REYNA MD REPORT #: [id number] REPORT IS CONFIDENTIAL AND NOT TO BE RELEASED WITHOUT AUTHORIZATION
== END 2021-01-20 01:31 | disposition short-term general hospital (02) ==
LOC: ED 20:09
DX: I48.91 Unspecified atrial fibrillation (principal); Z20.822 Contact with and (suspected) exposure to COVID-19; E11.9 Type 2 diabetes mellitus without complications; I10 Essential (primary) hypertension; Z87.891 Personal history of nicotine dependence; Z79.899 Other long term (current) drug therapy; Z79.4 Long term (current) use of insulin; Z79.891 Long term (current) use of opiate analgesic; Z79.82 Long term (current) use of aspirin
CPT/HCPCS: 71045; 80053; 83735; 84484; 85025; 93005; 93010; 96374; 96375; 96376; 99285-25; C9803; J1644; U0003